=== PATIENT | female | born 1955 | race Caucasian/White ===

== ENCOUNTER → 2023-11-15 11:06 | Outpatient (BNVA) | payer MEDICARE, MEDICAID, SELFPAY | PROVIDERS: PCP Internal Medicine; Visit Provider Surgery ==

== ENCOUNTER 2023-12-10 08:59 | Outpatient (AMB) | payer MEDICARE, MEDICAID, SELFPAY ==
--- NOTE | 2023-12-10 12:04 | A.OFFVIS_ITS ---
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 BMI 36.0 Allergies trimethoprim [From Bactrim] Allergy (Intermediate, Verified 12/10/23 12:04) mouth swelling Medication List - Last Reconciled 12/10/23 by Terry Merino MD albuterol sulfate 90 mcg/actuation 2 puffs inhalation Q4-6H PRN albuterol sulfate 90 mcg/actuation 2 puffs inhalation Q6H PRN dicyclomine 20 mg PO TID empagliflozin (Jardiance) 25 mg PO DAILY fexofenadine 180 mg PO DAILY hydroxyzine HCl 25 mg PO DAILY insulin glargine (Basaglar KwikPen U-100 Insulin) 62 units subcut DAILY lisinopril 40 mg PO DAILY metformin ER 500 mg PO BID montelukast 10 mg PO DAILY semaglutide (Ozempic) 1 mg subcut QWEEK sertraline 150 mg PO DAILY simvastatin 20 mg PO BEDTIME HPI 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 BMI 36.0: Details: Start time: 12pm, End time: 12.40pm ?I spent 35 minutes speaking with the patient on the phone plus an additional 5 minutes reviewing and updating records for a total of 40 minutes HPI Comments Details: Previous weight loss efforts: self diets Wakes up: 8am, Sleeps: 1am Breakfast: skips Lunch: 12pm (tuna fish, hot dogs, pasta) Dinner: 7pm (salad with chicken or steak, potatoes) Snacks: 3-4pm (pretzels or popcorn), 9pm (ice cream or pretzels) Exercise: has stationary bike Fluids: Coffee x1 (cream), tea: none, soda: diet coke x1/day, juice: none, ETOH: once a month [facility] Medical History (Updated 12/10/23 @ 12:34 by Terry Merino MD) BMI 36.0-36.9,adult Obesity IBS (irritable bowel syndrome) Anxiety Depression DJD (degenerative joint disease) Cholelithiasis Asthma Sleep apnea Hyperlipidemia Hypertension Insulin dependent type 2 diabetes mellitus Morbid obesity Surgical History (Updated 11/15/23 @ 13:52 by Linda Mcgovern CMA) Hx of colonoscopy History of local excision of skin lesion Hx of section Family History (Updated 11/15/23 @ 13:52 by Linda Mcgovern CMA) Family/Other No problems noted. Social History (Updated 11/15/23 @ 13:53 by Linda Mcgovern CMA) Alcohol intake: current Alcohol intake frequency: holidays/special occasions only Alcohol type: hard liquor and other Patient Tobacco Use Status: Former Tobacco user Telehealth Telehealth Telehealth Platform: Telephone Location of provider rendering services: practice address Location of patient: address on file Patient Identification confirmed using: Name, : Yes Telehealth method: voice only Patient verbally consented to treatment: Yes Patient verbally consented to billing insurance company: Yes Patient informed of any privacy concerns related to visit: Yes Minutes spent on Phone/Video with Pt.: 40 Assessment & Plan Assessment & Plan (1) Obesity: Code(s): E66.9 - Obesity, unspecified Category: Medical Qualifiers: Obesity type: due to excess calories Obesity classification: adult class 2 (BMI 35 - 39.9) Serious obesity comorbidity presence: with serious comorbidity Body mass index: BMI 36.0-36.9 Qualified Code(s): E66.01 - Morbid (severe) obesity due to excess calories; Z68.36 - Body mass index [BMI] 36.0- 36.9, adult Plan: 1.? Plan for lap sleeve gastrectomy. If diaphragmatic or ventral hernias are present at time of surgery, these will be repaired laparoscopically as well. Risks and complications include possible conversion to an open procedure, anastomotic leak, bleeding requiring transfusion, small bowel obstruction, , DVT and pulmonary embolism, cardiac, or pulmonary complications, as terminal computer operator complications such as anastomotic ulcer, insufficient weight loss and vitamin deficiencies. I emphasized the importance of close follow-up, adherence to instructions and good communication. 2. You will receive a link of our software gia to generate an individualized nutritional and exercise plan specific for you. Please send me a screenshot of the plans you will generate Meal to include lean meat (beef, fish, pork, turkey, chicken), or swedish yogurt, or egg whites, or beans with a salad with olive oil and fruits (berries, pears, apples, kiwi). Avoid salt, breads, potatoes, rice, pasta, desserts. ?3. If you choose shakes, each shake would be drunk slowly, like coffee in a period of 2 hours. ?4. If you choose bars, cut each bar in 4 pieces and eat each piece in 30min ?to make each bar last 2 hours. ?5. I emphasized the importance of measuring accurately the food portion and measure it when serving the food in plate ?6. The meal portions include a specific number of forks of meat and salad. You always eat the meat portion but you can replace up to half of salad/vegetables portion with rice, potatoes or pasta, or a fruit ?if you like. The less you do it the better weight loss will be. ?7. One full-size fork is what it can be scooped on the fork without falling aside and not what can be bit with the fork. Use regular forks like those you find in a typical restaurant. ?8.? Please send me weight measurements as soon as possible and then once a week. Always include your diet and exercise plan. 9. The best choice for exercise would be to use your stationary bike at home that can track calories. ?10.?Goal is to lose at least 1.5-2lbs per week ?11. Goal to lose 10% of your weight before surgery, which is about 19lbs. Ultimate weight goal: 177lbs before surgery 12. Please follow the diet plan exactly without any change. If you don't like something about the plan or you feel hungry you need to communicate with me so I can help you revise the plan. You should not change the plan yourself. 13. To be scheduled for EGD to assess the anatomy of your stomach. The possibility of biopsies was discussed. Patient needs to avoid use of NSAIDs and aspirin for 1 week prior to EGD. Risks of perforation and bleeding was discussed with the patient. This will be an outpatient procedure with IV sedation.
[2023-12-10 12:19] VITALS: BMI 35.9
== END 2023-12-10 12:40 | disposition home or self-care (01) ==
LOC: HO.HBS 08:59
PROVIDERS: PCP Internal Medicine; Visit Provider Surgery
DX: E66.01 Morbid (severe) obesity due to excess calories (principal); Z68.36 Body mass index [BMI] 36.0-36.9, adult
CPT/HCPCS: 99203

== ENCOUNTER → 2023-12-10 08:59 | Outpatient (BNVA) | payer MEDICARE, MEDICAID, SELFPAY | PROVIDERS: PCP Internal Medicine; Visit Provider Surgery ==

== ENCOUNTER 2023-12-22 10:21 | Outpatient (REF) | payer MEDICARE, MEDICAID, SELFPAY ==
--- NOTE | ~2023-12-22 | XR_ITS ---
EXAMINATION: XR CHEST CLINICAL INFORMATION: Morbid severe obesity due to excess calories, weight loss surgery preoperative x-ray. COMPARISON: None available. TECHNIQUE: 2 views of the chest were obtained. FINDINGS: There is no gross pneumothorax. Heart size within normal limits. Dextroscoliosis of the thoracic spine with advanced multilevel degenerative changes. Moderate anterior wedge compression fractures of several adjacent [id number] thoracic vertebral bodies of indeterminate age and etiology. No gross pleural effusion. No focal consolidation. Mildly prominent diffuse interstitial markings of indeterminate age and etiology. XR/XR chest 2V IMPRESSION: 1. Mildly prominent diffuse interstitial markings of indeterminate age and etiology. 2. Moderate anterior wedge compression fractures of several adjacent [id number] thoracic vertebral bodies of indeterminate age and etiology. Electronically signed by: Rosio Walker MD 01/10/2024 10:41 AM EDT
[2023-12-22 10:56] LABS: MANUAL DIFF FLAG NO
[2023-12-22 12:04] LABS: Basophils Absolute Auto 0.1 X10*3/uL (0.0-0.2); Basophils Percent Auto 1.3 % (0-2); Eosinophils Absolute Auto 0.2 X10*3/uL (0.0-0.4); Eosinophils Percent Auto 2.5 % (0-4); Hematocrit 42.2 % (37.0-47.0); Hemoglobin 14.1 g/dl (12.0-16.0); Imm Gran Abs Auto 0.02 X10*3/uL (0.00-0.03); Imm Gran Pct Auto 0.3 % (0.0-0.4); Lymphocytes Absolute Auto 1.3 X10*3/uL (1.2-4.9); Lymphocytes Percent Auto 19.4 % (20-40); Mean Corpuscular HGB Conc 33.4 g/dl (31.0-35.0); Mean Corpuscular Hemoglobin 28.7 pg (27.0-33.0); Mean Corpuscular Volume 85.8 fL (80.0-98.0); Mean Platelet Volume 10.7 fL (9.4-12.3); Monocytes Absolute Auto 0.6 X10*3/uL (0.1-1.2); Monocytes Percent Auto 9.1 % (2-11); Neutrophils Absolute Auto 4.5 x10*3/uL (2.0-8.3); Neutrophils Percent Auto 67.4 % (45-73); Platelet Count 238 X10*3/uL (160-400); Red Blood Count 4.92 X10*6/uL (4.20-5.50); Red Cell Distribution Width 13.7 % (11.0-16.0); White Blood Count 6.7 X10*3/uL (4.8-10.8)
[2023-12-22 12:12] LABS: Estimated Average Glucose 111 mg/dL; Hemoglobin A1C 140.2957 umol/L; Hemoglobin A1c % 5.5 % (<6.0)
[2023-12-22 12:43] LABS: Alanine Aminotransferase 12 U/L (0-31); Albumin Level 4.1 g/dL (3.5-5.0); Alkaline Phosphatase 92 U/L (39-117); Anion Gap 14 (12-20); Aspartate Amino Transferase 19 U/L (5-31); Bilirubin Total 0.3 mg/dL (0.0-1.0); Blood Urea Nitrogen 28 mg/dL (9-16); C Reactive Protein 0.19 mg/dL (< or = 0.50); Carbon Dioxide 28 mmol/L (22-29); Chloride 104 mmol/L (96-108); Cholesterol 166 mg/dL (<200); Estimated Glomerular Filt Rate 56; Glucose Random 66 mg/dL (60-115); HDL Cholesterol 57 mg/dL (>40); Iron 60 mcg/dL (30-160); LDL Cholesterol Calculated 86 mg/dL (<100); Percent Iron Saturation 23 % (15-50); Potassium 4.4 mmol/L (3.3-5.1); Sodium 142 mmol/L (135-145); Total Iron Binding Capacity 260 mcg/dL (228-428); Total Protein 7.4 g/dL (6.5-8.0); Triglycerides 115 mg/dL (<150); Unsaturated Iron Binding 200 ug/dL
[2023-12-22 13:04] LABS: Folate 10.4 ng/mL (> or = 4.0); Vitamin B12 920 pg/mL (200-900)
[2023-12-22 13:07] LABS: Ferritin 43 ng/mL (10-250); Insulin 29 uU/mL (2-29); TSH reflex Free T4 1.59 uIU/mL (0.32-4.0); Vitamin D 25-OH Total 36.4 ng/mL (>30)
[2023-12-25 00:39] LABS: Zinc 92 mcg/dL (60-130)
[2023-12-27 06:34] LABS: Vitamin B1 13 nmol/L (8-30)
[2023-12-27 09:49] LABS: Vitamin A 90 mcg/dL (38-98)
== END 2023-12-22 10:22 | disposition home or self-care (01) ==
LOC: HO.XRAY 10:21
PROVIDERS: PCP Internal Medicine; Visit Provider Surgery
DX: E66.01 Morbid (severe) obesity due to excess calories (principal); E11.9 Type 2 diabetes mellitus without complications; Z79.4 Long term (current) use of insulin; I10 Essential (primary) hypertension; E78.5 Hyperlipidemia, unspecified; G47.30 Sleep apnea, unspecified; J45.909 Unspecified asthma, uncomplicated; K80.20 Calculus of gallbladder without cholecystitis without obstruction
CPT/HCPCS: 36415; 71046; 80053; 80061; 82306; 82607; 82728; 82746; 83036; 83525; 83540; 84425; 84443; 84590; 84630; 85025; 86140

== ENCOUNTER 2023-12-29 10:48 | Outpatient (REF) | payer MEDICARE, MEDICAID, SELFPAY ==
--- NOTE | ~2023-12-29 | US_ITS ---
EXAMINATION: US COMPLETE ABDOMEN WITH LIVER ELASTOGRAPHY CLINICAL INFORMATION: Morbid obesity. COMPARISON: None available. TECHNIQUE: Real-time imaging of the abdominal viscera. Noninvasive ultrasound liver fibrosis assessment is performed using Ritesh ElastPQ point quantification shear wave elastography (pSWE) with a C5-2 MHz transducer. Multiple elastography samples are obtained. FINDINGS: PANCREAS: Normal. The visualized pancreatic head and body are normal in appearance. The remainder of the pancreas is obscured from visualization by the overlying bowel gas. ABDOMINAL AORTA: The proximal, middle, and distal aortic segments are normal in caliber. INFERIOR VENA CAVA: Visualized portions are normal. LIVER: The liver is enlarged with rounded contour and mildly nodular border but with normal echogenicity. No focal lesion or intrahepatic biliary duct dilatation. The right lobe measures 18.6 cm in length. The left lobe measures 10.7 cm in length. Portal flow is towards the liver (hepatopetal). Shear wave liver elastography median stiffness is 2.28 m/s (reference: normal median stiffness is 1.3 m/s or less). IQR/median stiffness to assess sampling precision is 0.14 (reference: good quality data set is IQR/median stiffness of 0.15 or less). GALLBLADDER: Multiple gallstones are present with the largest measuring 2.3 cm. There is an area of echogenicity and shadowing at the gallbladder fundus which is nonmobile which may represent a stone or possibly a mass. COMMON BILE DUCT: Normal in caliber measuring 0.7 cm in diameter. RIGHT KIDNEY: No hydronephrosis. No renal calculi or focal parenchymal lesions. The kidney measures 12.0 cm in maximum dimension. LEFT KIDNEY: No hydronephrosis. No renal calculi . The kidney measures 11.1 cm in maximum dimension. A benign lower pole 1.1 cm Bosniak class I renal cyst is noted which requires no additional imaging or follow up. No solid renal masses are seen. SPLEEN: Spleen is enlarged measuring 14.4 cm in maximum dimension. FREE FLUID: None. US/US abdomen comp w elastography IMPRESSION: 1. Enlarged liver with nodular contour suggesting cirrhosis. 2. There is cholelithiasis with a question of a mass at the gallbladder fundus. Liver MRI/MRCP would be useful for further evaluation. 3. Liver elastography: Measurements are consistent with compensated advanced chronic liver disease. REFERENCE: Society of Radiologists in Ultrasound Liver Stiffness Thresholds (2020): LIVER STIFFNESS THRESHOLDS: *Liver Stiffness equal or less than 1.3 m/s: High probability of being normal. *Liver Stiffness less than 1.7 m/s: In the absence of other known clinical signs, rules out compensated advanced chronic liver disease. *Liver Stiffness 1.7-2.1 m/s: Suggestive of compensated advanced chronic liver disease but need further test for confirmation. *Liver Stiffness over 2.1 m/s: Rules in compensated advanced chronic liver disease. *Liver Stiffness over 2.4 m/s: Suggestive of clinically significant portal hypertension. QUALITY OF DATA SET: *IQR/Median value equal or less than 0.15 implies a quality data set. *IQR/Median value over 0.15 implies a poor quality data set. SIGNIFICANT CHANGE FROM PRIOR EXAM: Significant change if liver stiffness measurement is 10% or greater from prior exam. OTHER CONSIDERATIONS: The stage of liver fibrosis may be overestimated in the setting of acute hepatitis, liver inflammation, elevated liver function tests, hepatic vascular congestion, obstructive cholestasis, non-fasting state, and infiltrative diseases such as amyloidosis and lymphoma. In some patients with NAFLD, the liver stiffness thresholds for compensated advanced chronic liver disease may be lower. In causes other than viral hepatitis and NAFLD, liver stiffness thresholds are not well established. Electronically signed by: Dnate Couch MD 01/01/2024 12:57 PM EDT
== END 2023-12-29 10:49 | disposition home or self-care (01) ==
LOC: HO.US 10:48
PROVIDERS: PCP Internal Medicine; Visit Provider Surgery
DX: E66.01 Morbid (severe) obesity due to excess calories (principal); E11.9 Type 2 diabetes mellitus without complications; Z79.4 Long term (current) use of insulin; I10 Essential (primary) hypertension; K80.20 Calculus of gallbladder without cholecystitis without obstruction
CPT/HCPCS: 76700; 76981

== ENCOUNTER 2024-01-03 08:35 | Outpatient (REF) | payer MEDICARE, MEDICAID, SELFPAY ==
--- NOTE | ~2024-01-03 | FL_ITS ---
EXAMINATION: XR FLUOROSCOPY UPPER GI WITH AIR CLINICAL INFORMATION: Preoperative evaluation prior to bariatric surgery . COMPARISON: None TECHNIQUE: Fluoroscopic air contrast upper GI examination was performed utilizing standard techniques with thin and thick barium and effervescent granules. Numerous spot images were obtained. FINDINGS: Images of the oropharynx and hypopharynx demonstrate normal swallow mechanism with normal epiglottic inversion and soft palate elevation. Trace laryngeal penetration is seen with thick barium. A small amount of tracheal aspiration was then observed. No nasopharyngeal reflux present. A small lateral pharyngeal diverticulum is noted.There was no significant cricopharyngeal achalasia. Dual and single contrast images of the esophagus demonstrate a mildly patulous esophagus. Esophageal mucosa appears normal. No evidence of stricture, mass, or ulcerations identified. Esophageal peristalsis is mildly disorganized. A very small type I hiatal hernia is present. Mild gastroesophageal reflux is seen in the distal esophagus. Dual contrast and single contrast images of the stomach demonstrated a normal contour. There are multiple focal areas of contrast pooling in the fundus of the stomach that may represent small superficial aphthous ulcers. No masses are seen. Contrast freely passed into the gastric antrum and duodenal bulb without delay. Single and air-contrast images of the duodenal bulb demonstrate no abnormality. There may be a tiny diverticulum arising from the duodenal bulb. The duodenal sweep has a normal appearance, course, and mucosal fold appearance. The imaged proximal jejunum has a normal fold pattern and caliber. Incidentally noted was a large calcified mobile gallstone. There is calcification of the aorta. FLUOROSCOPY TIME: 4 minutes 57 seconds Number of Spot Images: 7 Number of Cine: 8 DOSE AREA PRODUCT: [id number] uGy-m2 (microgray-meter squared) FL/FL upper GI w air IMPRESSION: 1. Trace laryngeal penetration with thick barium that progressed to a trace amount of subglottic tracheal aspiration. 2. Tiny lateral pharyngeal diverticulum. 3. Mildly patulous esophagus with mildly disorganized esophageal peristalsis which suggests esophageal dysmotility. 4. Very small type I hiatal hernia with mild gastroesophageal reflux observed. 5. Multiple focal areas of contrast pooling in the fundus of the stomach that may represent small superficial aphthous ulcers. Mildly thickened gastric folds suspected. Findings may represent gastritis. Recommend correlation with EGD. 6. Incidental note of calcified mobile gallstone. This procedure was performed by Cristi Waletr PA-C, and supervised by Dr. Stephenson Electronically signed by: Edward Stephenson MD 01/03/2024 04:50 PM EDT
--- NOTE | 2024-01-03 09:19 | ECG_ITS ---
Test Reason : obesity Blood Pressure : / mmHG Vent. Rate : 081 BPM Atrial Rate : 081 BPM P-R Int : 170 ms QRS Dur : 090 ms QT Int : 386 ms P-R-T Axes : 057 -09 042 degrees QTc Int : 448 ms Normal sinus rhythm Low voltage QRS Possible Inferior infarct , age undetermined Abnormal ECG No previous ECGs available Referred By: Terry Merino Electronically Signed By:DAVID CORRAL
== END 2024-01-03 08:36 | disposition home or self-care (01) ==
LOC: HO.XRAY 08:35
PROVIDERS: PCP Internal Medicine; Visit Provider Surgery
DX: E66.01 Morbid (severe) obesity due to excess calories (principal); E11.9 Type 2 diabetes mellitus without complications; Z79.4 Long term (current) use of insulin; I10 Essential (primary) hypertension; E78.5 Hyperlipidemia, unspecified; G47.30 Sleep apnea, unspecified; J45.909 Unspecified asthma, uncomplicated; K80.20 Calculus of gallbladder without cholecystitis without obstruction
CPT/HCPCS: 74246; 93005

== ENCOUNTER → 2024-01-03 08:40 | Outpatient (BNV) | payer MEDICARE, MEDICAID, SELFPAY | PROVIDERS: PCP Internal Medicine; Visit Provider Radiology Diagnostic Radiology | DX: Z01.818 Encounter for other preprocedural examination (principal); E66.01 Morbid (severe) obesity due to excess calories | CPT/HCPCS: 74246 ==

== ENCOUNTER 2024-01-13 09:01 | Day surgery (SDC) | payer MEDICARE, MEDICAID, SELFPAY ==
[2024-01-13 09:26] VITALS: BP 175/91; PULSE 81; RESP 16; TEMP 36.4; O2SAT 98; BMI 34.9
[2024-01-13] MEDS: Lactated Ringers 1,000 ML 80 ML IVCONT (09:45)
[2024-01-13 10:27] LABS: Glucose, Whole Blood 79 mg/dL (60-115)
--- NOTE | 2024-01-13 11:49 | MHC.SHP ---
Pre-Procedural Eval Section A - 24 Hr Update-Section A only Date of Service: 01/13/24 The patient is an INPATIENT: No The patient has been examined within 24 hours of the surgical procedure. The History & Physical has been completed within 30 days and I have reviewed it.: Yes Section B - Complete if H&P > 30 days Chief Complaint: Morbid (severe) obesity due to excess calories Relevant Family History (Specify if Yes): No Relevant Social History: None Present Medications: None Medical History: No relevant PMH History of Previous Operations: No relevant previous surgery Allergies: Allergies Allergy/AdvReac Type Severity Reaction Status Date / Time trimethoprim [From Bactrim] Allergy Intermediate mouth Verified 01/13/24 09:15 swelling Review of Systems Sugical H&P ROS: Negative: Constitution, Cardiovascular, Respiratory, Neurological, Psychiatric, Hem-Onc, Allergic/Immunologic, Gastrointestinal, Genitourinary, Musculoskeletal, Integumentary, Endocrine and Eyes/Ears/Nose/Throat Exam Surgical H&P Exam: Normal: HEENT, Normal: Heart, Normal: Lungs, Normal: Extremities, Normal: Abdomen, Normal: Skin and Normal: Neurological Plan Diagnosis/Plan: Unchanged (EGD to assess the stomach's anatomy. Risks of bleeding and perforation were discussed with the patient and she is in agreement with the plan.) I have reviewed the history and physical and performed a pertinent physical examination on my patient. No changes have occurred unless specified. Time Spent With Patient Time: Total time managing care of this patient today ____ minutes.
--- NOTE | 2024-01-13 11:50 | P.CONAN_ITS ---
Documented by User: Camila Gunderson NP 01/11/24 15:11 HPI - Anesthesia Eval Consult details Narrative: 68yo F for Upper Endoscopy Anesthesia Pre-Procedure Meds Is the patient on any of the following meds?: GLP1/DPP4 and SGLT2 Inhib PMFSH Active Problems Active Problems: All Active Problems Abnormal EKG (Acute) BMI 36.0-36.9,adult (Acute) Obesity (Acute) IBS (irritable bowel syndrome) (Acute) Anxiety (Acute) Depression (Acute) DJD (degenerative joint disease) (Acute) Cholelithiasis (Acute) Asthma (Acute) Sleep apnea (Acute) Hyperlipidemia (Acute) Hypertension (Acute) Insulin dependent type 2 diabetes mellitus (Acute) Morbid obesity (Acute) Past Medical History Medical History (Updated 01/06/24 @ 22:32 by Terry Merino MD) BMI 36.0-36.9,adult Obesity IBS (irritable bowel syndrome) Anxiety Depression DJD (degenerative joint disease) Cholelithiasis Asthma Sleep apnea Hyperlipidemia Hypertension Insulin dependent type 2 diabetes mellitus Morbid obesity Family History Family History (Updated 11/15/23 @ 13:52 by Linda Mcgovern CMA) Family/Other No problems noted. Surgical History Surgical History Hx of colonoscopy History of local excision of skin lesion Hx of section Social History Social History (Updated 11/15/23 @ 13:53 by Linda Mcgovern CMA) Are you a primary special needs caregiver to a significant other at home: No Do you presently have visiting nurse or other home services: No Alcohol intake: current Alcohol intake frequency: holidays/special occasions only Alcohol type: hard liquor and other Patient Tobacco Use Status: Former Tobacco user Tobacco use type: Cigarette Cigarette Packs Per Day: 1 Cigarettes Per Day: 20.0 Years Smoked: 5 Smoked in Last 30 Days: No Use of substances other than those prescribed or required for medical reasons: No Have you been hit, kicked, punched, or otherwise hurt by someone within the past year? If so, by whom?: No Are you DNR?: No Advance Directives: No Advance Directives Information Provided: Yes Recently lost weight without trying: No How much weight loss: 2-13 pounds Eating poorly because of decreased appetite: No Nutrition screen score: 1 Nutrition Risks: No Nutritional Risk Patient : No : No Poor oral hygiene: Yes (Upper and lower full dentures) Meds Allergies Allergy/AdvReac Type Severity Reaction Status Date / Time trimethoprim [From Bactrim] Allergy Intermediate mouth Verified 01/13/24 09:15 swelling Home Medications ?Medication ?Instructions ?Recorded ?Confirmed ?Last Taken ?Type albuterol sulfate 90 mcg/actuation 2 puff inhalation Q4-6H PRN asthma 11/15/23 01/13/24 Unknown History aerosol inhaler dicyclomine 20 mg tablet 20 mg PO TID 11/15/23 01/13/24 Unknown History empagliflozin 25 mg tablet 25 mg PO DAILY 11/15/23 01/13/24 01/09/24 History (Jardiance) fexofenadine 180 mg tablet 180 mg PO DAILY 11/15/23 01/13/24 Unknown History hydroxyzine HCl 25 mg tablet 25 mg PO DAILY 11/15/23 01/13/24 Unknown History insulin glargine 100 unit/mL (3 54 unit subcut DAILY 11/15/23 01/13/24 01/12/24 23:00 History mL) subcutaneous pen (Basaglar 54 units KwikPen U-100 Insulin) lisinopril 40 mg tablet 40 mg PO DAILY 11/15/23 01/13/24 Unknown History montelukast 10 mg tablet 10 mg PO DAILY 11/15/23 01/13/24 Unknown History semaglutide 1 mg/dose (4 mg/3 mL) 1 mg subcut QWEEK 11/15/23 01/13/24 01/04/24 History subcutaneous pen injector (Ozempic) sertraline 100 mg tablet 150 mg PO DAILY 11/15/23 01/13/24 Unknown History simvastatin 20 mg tablet 20 mg PO BEDTIME 11/15/23 01/13/24 Unknown History amlodipine 10 mg tablet 10 mg PO DAILY 01/13/24 01/13/24 01/12/24 History fluticasone furoate 200 1 ea inhalation DAILY 01/13/24 01/13/24 Unknown History mcg-vilanterol 25 mcg/dose inhalation powder (Breo Ellipta) Assessment and Plan Assessment Anesthesia Assessment: Chart Reviewed Documented by User: Ely Laguerre DO 01/13/24 12:04 HPI - Anesthesia Eval Anesthesia Pre-Procedure Meds Is the patient on any of the following meds?: GLP1/DPP4 and SGLT2 Inhib PMFSH Past Medical History Medical History (Updated 01/06/24 @ 22:32 by Terry Merino MD) BMI 36.0-36.9,adult Obesity IBS (irritable bowel syndrome) Anxiety Depression DJD (degenerative joint disease) Cholelithiasis Asthma Sleep apnea Hyperlipidemia Hypertension Insulin dependent type 2 diabetes mellitus Morbid obesity Family History Family History (Updated 11/15/23 @ 13:52 by Linda Mcgovern CMA) Family/Other No problems noted. Family history of problems with anesthesia: No Surgical History Surgical History Hx of colonoscopy History of local excision of skin lesion Hx of section History of Problems with Anesthesia: No Social History Social History (Updated 11/15/23 @ 13:53 by Linda Mcgovern CMA) Are you a primary special needs caregiver to a significant other at home: No Do you presently have visiting nurse or other home services: No Alcohol intake: current Alcohol intake frequency: holidays/special occasions only Alcohol type: hard liquor and other Patient Tobacco Use Status: Former Tobacco user Tobacco use type: Cigarette Cigarette Packs Per Day: 1 Cigarettes Per Day: 20.0 Years Smoked: 5 Smoked in Last 30 Days: No Use of substances other than those prescribed or required for medical reasons: No Have you been hit, kicked, punched, or otherwise hurt by someone within the past year? If so, by whom?: No Are you DNR?: No Advance Directives: No Advance Directives Information Provided: Yes Recently lost weight without trying: No How much weight loss: 2-13 pounds Eating poorly because of decreased appetite: No Nutrition screen score: 1 Nutrition Risks: No Nutritional Risk Patient : No : No Poor oral hygiene: Yes (Upper and lower full dentures) Meds Allergies Allergy/AdvReac Type Severity Reaction Status Date / Time trimethoprim [From Bactrim] Allergy Intermediate mouth Verified 01/13/24 09:15 swelling Home Medications ?Medication ?Instructions ?Recorded ?Confirmed ?Last Taken ?Type albuterol sulfate 90 mcg/actuation 2 puff inhalation Q4-6H PRN asthma 11/15/23 01/13/24 Unknown History aerosol inhaler dicyclomine 20 mg tablet 20 mg PO TID 11/15/23 01/13/24 Unknown History empagliflozin 25 mg tablet 25 mg PO DAILY 11/15/23 01/13/24 01/09/24 History (Jardiance) fexofenadine 180 mg tablet 180 mg PO DAILY 11/15/23 01/13/24 Unknown History hydroxyzine HCl 25 mg tablet 25 mg PO DAILY 11/15/23 01/13/24 Unknown History insulin glargine 100 unit/mL (3 54 unit subcut DAILY 11/15/23 01/13/24 01/12/24 23:00 History mL) subcutaneous pen (Basaglar 54 units KwikPen U-100 Insulin) lisinopril 40 mg tablet 40 mg PO DAILY 11/15/23 01/13/24 Unknown History montelukast 10 mg tablet 10 mg PO DAILY 11/15/23 01/13/24 Unknown History semaglutide 1 mg/dose (4 mg/3 mL) 1 mg subcut QWEEK 11/15/23 01/13/24 01/04/24 History subcutaneous pen injector (Ozempic) sertraline 100 mg tablet 150 mg PO DAILY 11/15/23 01/13/24 Unknown History simvastatin 20 mg tablet 20 mg PO BEDTIME 11/15/23 01/13/24 Unknown History amlodipine 10 mg tablet 10 mg PO DAILY 01/13/24 01/13/24 01/12/24 History fluticasone furoate 200 1 ea inhalation DAILY 01/13/24 01/13/24 Unknown History mcg-vilanterol 25 mcg/dose inhalation powder (Breo Ellipta) Exam Exam Date and Time: 01/13/24 1150 Height,Weight and Vital Signs: Height 5 ft 2 in Weight 86.545 kg Vital Signs Temperature 97.6 F 01/13/24 09:26 Pulse Rate 81 01/13/24 09:26 Respiratory Rate 16 01/13/24 09:26 Blood Pressure 175/91 H 01/13/24 09:26 Pulse Oximetry 98 01/13/24 09:26 Oxygen Delivery Method Room Air 01/13/24 09:26 Temperature 97.6 F 01/13/24 09:26 Pulse Rate 81 01/13/24 09:26 Respiratory Rate 16 01/13/24 09:26 Blood Pressure 175/91 H 01/13/24 09:26 Pulse Oximetry 98 01/13/24 09:26 Oxygen Delivery Method Room Air 01/13/24 09:26 Airway Mallampati Class: II TM Dist: >3cm Neck ROM: Full Denture: Upper and Lower Heart: S1S2 Lungs: CTAB Assessment and Plan Assessment Anesthesia Assessment: Anesthesia Plan Discussed and Chart Reviewed Final Anesthetic Review Family History of Problems with Anesthesia: No History of Problems with Anesthesia: No NPO: Yes ASA Class: III Final Preanesthetic Review: No Changes in Pt Med Stat, Meds/Allgs Chart Reviewed, Consent Obtained/Reviewed and Anes Risks/Benef Reviewed Patient Risk: Intermediate Procedure Risk: Low Anesthetic Plan Anesthetic Plan: MAC: and Agree w/ Assess. and Plan Disposition: Standard PACU
--- NOTE | 2024-01-13 11:52 | PM.OP ---
Brief Operative Note Date of Service: 01/13/24 Pre-op diagnosis: Severe obesity Post-op diagnosis: same Procedure: PROCEDURE DATE: 01/13/2024 PREOPERATIVE DIAGNOSIS: Severe obesity POSTOPERATIVE DIAGNOSIS: ?Same as above. 1) moderate size hiatal hernia PROCEDURE: [id number] with biopsies Surgeon: Srikanth Merino M.D.. Ph.D. Electroplating Technician: None ? Anesthesia: IV sedation Estimated blood loss: ?Minimal FINDINGS AND PROCEDURE: ? OPERATIVE INDICATIONS: ?The patient is a 68 year old female known to me who is interested in bariatric surgery. Based on this information I recommended an upper endoscopy to evaluate the stomach's anatomy. Risks and complications of the surgery were discussed with the patient in advance particularly the possibility of perforation or bleeding that may require surgical intervention. The patient understood the risks and was in agreement with the plan. ? PROCEDURE: After informed consent was obtained by the patient, the patient was ?transferred to the Operating Room and was placed in the supine position.? After successful induction of IV sedation, a mouth block was inserted and the patient was placed in the left lateral decubitus position. An upper endoscopy was performed next, the oropharynx and esophagus appeared within the normal limits. There was a moderate size 4-5cm hiatal hernia. The z-line was smooth. Two biopsies were obtained from the distal esophagus 2-3 cm proximal to the GE junction and two additional biopsies from the GE junction. The stomach was entered and it appeared to be of normal size. There was no gastritis. There was no stricture or ulcer. A biopsy was obtained from the gastric fundus and the antrum. No significant bleeding was noted from any of the biopsy sites. Retroflexion of the scope confirned the presence of the diaphragmatic hernia. The scope was then advanced into the duodenum which appeared to be normal as well. At that point the duodenum ?and the stomach were decompressed and the scope was withdrawn from the patient's mouth. The patient extubated and was transferred in stable condition to the Recovery Room for further care. I was present and performed all steps of the procedure. There were no residents to assist with this case. Francois Merino M.D., Ph.D. Surgeon: Terry Merino MD Anesthesia: MAC Was an Electroplating Technician used for this Procedure?: No Estimated blood loss (mL): 0 IV fluids (mL): 400 Urine output (mL): 0 (No Cantor to record output) Pathology: other (1) antrum x1, 2) fundus x1, 3) GE junction x2, 4) distal esophagus x2) Condition: stable Disposition: PACU
[2024-01-13 12:44] VITALS: BP 127/79; PULSE 59; RESP 16; TEMP 36.1; O2SAT 96
[2024-01-13 13:02] VITALS: BP 127/68; PULSE 95; RESP 18; TEMP 36.1; O2SAT 94
== END 2024-01-13 13:42 | disposition home or self-care (01) ==
PROVIDERS: PCP Internal Medicine; Visit Provider Surgery
PROC: 0DJ08ZZ Inspection of Upper Intestinal Tract, Via Natural or Artificial Opening Endoscopic (ICD-10-PCS; CPT 43235; principal; 2024-01-13 11:40)
DX: E66.01 Morbid (severe) obesity due to excess calories (principal); Z68.36 Body mass index [BMI] 36.0-36.9, adult; K44.9 Diaphragmatic hernia without obstruction or gangrene; I10 Essential (primary) hypertension; K58.9 Irritable bowel syndrome, unspecified; E78.5 Hyperlipidemia, unspecified; G47.30 Sleep apnea, unspecified; J45.909 Unspecified asthma, uncomplicated; E11.9 Type 2 diabetes mellitus without complications; Z79.4 Long term (current) use of insulin; Z79.84 Long term (current) use of oral hypoglycemic drugs; Z79.85 Long-term (current) use of injectable non-insulin antidiabetic drugs; Z79.899 Other long term (current) drug therapy; Z88.8 Allergy status to other drugs, medicaments and biological substances; Z87.891 Personal history of nicotine dependence
CPT/HCPCS: 43239; 82947; 88305; 88313; 88342; J1100; J1596; J2250; J2704

== ENCOUNTER → 2024-01-13 09:01 | Outpatient (BNV) | payer MEDICARE, MEDICAID, SELFPAY | PROVIDERS: PCP Internal Medicine; Visit Provider Surgery | DX: K44.9 Diaphragmatic hernia without obstruction or gangrene (principal) | CPT/HCPCS: 43239 ==

== ENCOUNTER → 2024-01-24 11:08 | Outpatient (BNVA) | payer MEDICARE, MEDICAID, SELFPAY | PROVIDERS: PCP Internal Medicine; Visit Provider Counselor Mental Health ==

== ENCOUNTER → 2024-01-24 11:08 | Outpatient (AMB) | payer MEDICARE, MEDICAID, SELFPAY ==
--- NOTE | 2024-01-24 11:08 | MHC.WMTHER ---
Intake Intake Visit Reasons: VIDEO Intake Allergies trimethoprim [From Bactrim] Allergy (Intermediate, Verified 01/13/24 09:15) mouth swelling PFSH Medical History (Updated 01/21/24 @ 22:24 by Terry Merino MD) BMI 36.0-36.9,adult Obesity IBS (irritable bowel syndrome) Anxiety Depression DJD (degenerative joint disease) Cholelithiasis Asthma Sleep apnea Hyperlipidemia Hypertension Insulin dependent type 2 diabetes mellitus Morbid obesity Surgical History Hx of colonoscopy History of local excision of skin lesion Hx of section Family History (Updated 11/15/23 @ 13:52 by Linda Mcgovern CMA) Family/Other No problems noted. Social History (Updated 11/15/23 @ 13:53 by Linda Mcgovern CMA) Are you a primary veterinarian laboratory animal care to a significant other at home: No Do you presently have visiting nurse or other home services: No Alcohol intake: current Alcohol intake frequency: holidays/special occasions only Alcohol type: hard liquor and other Patient Tobacco Use Status: Former Tobacco user Tobacco use type: Cigarette Cigarette Packs Per Day: 1 Cigarettes Per Day: 20.0 Years Smoked: 5 Behavioral Health Assessment Weight Management Therapy Therapy Notes Details PT is a 68 years old Female, who presents for a visit to complete assessment as part of surgical weight loss program. PT denied any history of mental health treatment and or past hospitalization/crisis for behavioral health. However, PT reports she used to have some anxiety in the past and her PCP prescribes Sertraline 150mg for anxiety, but she has never been in counseling to treat anxiety, and currently she feels very well. PT denies any history or recent safety concerns around SI/SA and/or self-harm/other-harm, also there is no history of substance use reported. There is also no evidence for stress/emotional-eating, and scores from BES suggest low risk for binge eating behavior. PHQ- scores also showed no active symptoms/concerns with depression. On the other hand, mental status exam is within normal limits, suggesting person's functioning is not impaired. At this time patient is cleared from the behavioral health standpoint. Presenting Concerns Referral Source WMP-Provider. PT sees Dr. Cisneros Reason for referral Completion of behavioral health assessment as part of process for weight-loss surgery. Precipitating Event Obesity. Living Situation Current Living Situation Relative's/Guardian's Wilberto At risk of losing current housing? No Satisfied with current living situation? Yes Comments PT lives with her daughter 2 years ago. Food/Weight/Diet Expectations of change Initial Goal to lose 10% of your weight before surgery, which is about 19lbs. Ultimate weight goal: 177lbs before surgery Patient goals are to lose 50-60Lbs, and become healthier and medical issues under control. PT is implementing the following: Current meal plan: 2 shakes, 2 meals. She takes a bar in place of a shake if needs. Exercise plan: 30 min in the stationary bike. History/Relationship with food PT reports in the past food was a source of comfort, also she used to eat chips or snacks when bored. Denies ever use food to lift her mood or to celebrate after a good day. Example of meals before starting the program: Breakfast: Skip. was only having coffee with cream. Lunch: hot dogs, tuna fish with onions and grijalva. Dinner: pork chops/chicken/meat, potatoes, veggies. Her daughter cooks, so her meals are based on what she cooks at home. Snacks: crackers, piece of candy, pretzels, popcorn. Drinks/Liquids: 1 can of soda at jerald, 1 coffee in the morning, and at least 1 full glass of water at day, 2 bottles of Powerade trough the day. History/Relationship with weight Pt reports she has been heavy since she can remember. PT reports she was under 200Lbs on her late teens. In the last 10 years, the patient's Lowest weight was in the 200Lbs and highest 220Lbs History/Relationship with dieting Self-diets, cutting on foods. She has been in Ozempic for about a year to treat her diabetes but she has noticed this has helped her with hunger. Binge Eating Do you frequently eat large amounts of food in short periods of time, not feeling physically hungry? Yes Do you feel out of control when you eat a large amount of food in a short period of time? No Do you eat large amounts of food rapidly and typically alone? No Night Eating Do you wake up at least once during the night to eat? No If you wake up in the night, do you find that it is necessary to eat something in order to fall back asleep? No Do you have little or no appetite in the morning and feel very hungry in the evening, often overeating between dinner and when you go to bed? No Social History Family history and relationship PT is . She had 7 kids, 1 daughter 7 year sago from diabetes, 6 alive. Has 3 sisters and 1 brother. Parents . PT reports having good relationship with children. Parental/Familial second vp hr assessment obligations None reported. Developmental history and status None reported. Current WNL. Social support Children. Community support PCP Denominational/Spirituality Muslim. Cultural/Ethnic information . Thai heritage. Legal Involvement and History Current or historical involvement with the legal system? None reported. Education Highest grade completed 11th grade. Preferred learning style Visual Currently enrolled in educational program? No Interested in further educational program? 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 Employment Employment Status Retired (been retired 2 1/2 years ago. ) Wants help to find employment? No Meaningful activities knitting. Financial Situation Describe current financial situation Comfortable Financial assistance? Food [place] Service Service? No Mental Health and Addiction Treatment Current/Past substance abuse? No Comments Alcohol: only on special occasions, probably 2-3 times at year, a cocktail and sometimes she doesn't finishes. Cigarettes/Tobacco: None. Quit smoking almost 40 years ago. Cannabis/Edibles: None. Current/Past addictive behavior concerns? No Psychiatric history PT reports she used to have some anxiety in the past and her PCP prescribes Sertraline 150mg for anxiety, but she has never been in counseling to treat anxiety, and currently she feels very well. PT denies ever been in crisis or inpatient for mental health. There is no history and/or current concern about SI/Sa and self-harm or other harm. Medical and Physical Health Summary Additional Medical History not covered in history None reported. Sexual History concerns None reported Physical exam in the last year? Yes Pain Screening Current pain? Yes Pain in the last few months? Yes Comments due to arthritis and will need a surgery on her foot. Medications Is the patient compliant with medications? Yes Does the patient have Rg Guardian in place? Not applicable Does the patient use complimentary health approaches? No Trauma/Abuse History History of trauma? No Questionnaires PHQ-9 Over the last 2 weeks, how often have you been bothered by any of the following problems? 1. Little interest or pleasure in doing things: not at all 2. Feeling down, depressed, or hopeless: not at all 3. Trouble falling or staying asleep, or sleeping too much: several days (when takes a nap in the afternoon.) 4. Feeling tired or having little energy: not at all 5. Poor appetite or overeating: not at all 6. Feeling bad about yourself - or that you are a failure or have let yourself or your family down: not at all 7. Trouble concentrating on things, such as reading the newspaper or watching television: several days (when gets disturbed ) 8. Moving or speaking so slowly that other people could have noticed. Or the opposite - being so fidgety or restless that you have been moving around a lot more than usual: not at all 9. Thoughts that you would be better off or of hurting yourself in some way: not at all Total score: 2 Depression Screening Interpretation: Negative Depression Screening Done: Yes [id number] - PHQ-9 Billing: Yes Source: Developed by Drs. Derik Muhammad, Deirdre Ambrocio, Tl Sylvester and colleagues, with an educational maría from [employer]. Binge Eating Scale Group 1 A. I don't feel self-conscious about my wt. or body size when I'm with others. B. I feel concerned about how I look to others, but it normally does not make me fell disappointed with myself C. I do get self-conscious about my appearance and wt. which makes me feel disappointed in myself. D. I feel very self-conscious about my wt. and frequently I feel intense shame and disgust for myself. I try to avoid social contacts because of my self-consciousness. Response Group 1: D Group 2 A. I don't have any difficulty eating slowly in the proper manner. B. Although I seem to gobble down foods, I don't end up feeling stuffed because of eating to much. C. At times, I tend to eat quickly and then, I feel uncomfortably full afterwards. D. I have the habit of bolting down my food, without really chewing it. When this happens I usually feel uncomfortably stuffed because I've eaten to much. Response Group 2: A Group 3 A. I feel capable to control my eating urges when I want to. B. I feel like I have failed to control my eating more than the average person. C. I feel utterly helpless when it comes to feeling in control of my eating urges. D. Because I feel so helpless about controlling my eating I have become very desperate about trying to get control. Response Group 3: B Group 4 A. I don't have the habit of eating when I'm bored. B. I sometimes eat when I'm bored, but often I'm able to get busy and get my mind off food. C. I have a regular habit of eating when I'm bored, but occasionally, I can use some other activity to get my mind off eating. D. I have a strong habit of eating when I'm bored. Nothing seems to help me breath the habit. Response Group 4: B Group 5 A. I'm usually physically hungry when I eat something. B. Occasionally, I eat something on impulse even though I really am not hungry. C. I have the regular habit of eating foods, that I might not really enjoy, to satisfy a hungry feeling even though physically, I don't need the food. D. Although I'm not physically hungry, I get a hungry feeling in my mouth that only seems to be satisfied when I eat a food, like sandwich, that fills my mouth. Sometimes, when I eat the food to satisfy my mouth hunger, I then spit the food out so I won't gain weight. Response Group 5: B Group 6 A. I don't feel any guilt or self-hate after I overeat. B. After I overeat, occasionally I feel guilt or self-hate. C. Almost all the time I experience strong guilt or self-hate after I overeat. Response Group 6: C Group 7 A. I don't lose total control of my eating when dieting even after periods when I overeat. B. Sometimes when I eat a forbidden food on a diet, I feel like I blew it and eat even more. C. Frequently, I have the habit of saying to myself, I've blown it now, why not go all the way, when I overeat on a diet. When that happens I eat more. D. I have a regular habit of starting a strict diets for myself but I break the diets by going on an eating binge. My life seems to be either a feast or famine. Response Group 7: B Group 8 A. I rarely eat so much food that I feel uncomfortably stuffed afterwards. B. Usually about once a month, I each such a quantity of food, I end up feeling very stuffed. C. I have regular periods during the month when I eat large amounts of food, either at mealtime or at snacks. D. I eat so much food that I regularly feel quite uncomfortable after eating and sometimes a bit nauseous. Response Group 8: B Group 9 A. My level of calorie intake does not go up very high or go down very low on a regular basis. B. Sometimes after I overeat, I will try to reduce my caloric intake to almost nothing to compensate for the excess calories I've eaten. C. I have a regular habit of overeating during the night. It seems that my routine is not to be hungry in the morning but overeat in the evening. D. In my adult years, I have had week-long periods where I practically starve myself. This follows periods when I overeat. It seems I live a life of either feast or famine. Response Group 9: A Group 10 A. I usually am able to stop eating when I want to. I know when enough is enough. B. Every so often, I experience a compulsion to eat which I can't seem to control. C. Frequently, I experience strong urges to eat which I seem unable to control, but at other times I can control my eating urges. D. I feel incapable of controlling urges to eat. I have a fear of not being able to stop eating voluntarily. Response Group 10: A Group 11 A. I don't have any problem stopping eating when I feel full. B. I usually can stop eating when I feel full but occasionally overeat leaving me feeling uncomfortably stuffed. C. I have a problem stopping eating once I start and usually I feel uncomfortably stuffed after I eat a meal. D. Because I have a problem not being able to stop eating when I want, I sometimes have to induce vomiting to relieve my stuffed feeling. Response Group 11: A Group 12 A. I seem to eat just as much when I'm with others, Family social gatherings as when I'm by myself. B. Sometimes, when I'm with other persons, I don't eat as much as I want to eat because I'm self-conscious about my eating. C. Frequently, I eat only a small amount of food when others are present, because I'm very embarrassed about my eating. D. I feel so ashamed about overeating that I pick times to overeat when I know no one will see me. I feel like a closet eater. Response Group 12: D Group 13 A. I eat three meals a day with only an occasional between meal snack. B. I eat 3 meals a day, but I also normally snack between meals. C. When I am snacking heavily, I get in the habit of skipping regular meals. D. There are regular periods when I seem to be continually eating, with no planned meals. Response Group 13: C Group 14 A. I don't think much about trying to control unwanted eating urges. B. At least some of the time, I feel my thoughts are pre-occupied with trying to control my eating urges. C. I feel that frequently I spend much time thinking about how much I ate or about trying not to eat anymore. D. It seems to me that most of my waking hours are pre-occupied by thoughts about eating or not eating. I feel like I'm constantly struggling not to eat. Response Group 14: C Group 15 A. I don't think about food a great deal. B. I have strong craving for food but they last only for brief periods of time. C. I have days when I can't seem to think about anything else but food. D. Most of my days seem to be pre-occupied with thoughts about food. I feel like I live to eat. Response Group 15: A Group 16 A. I usually know whether or not I'm physically hungry. I take the right portion of food to satisfy me. B. Occasionally, I feel uncertain about knowing whether or not I'm physically hungry. A these times it's hard to know how much food I should take to satisfy me. C. Even though I might know how many calories I should eat, I don't have any idea what is a normal amount of food for me. Response Group 16: A Binge Eating Score: 17 Score less than 17 Minimal Risk Score between 18-26 Moderate Risk Score between 27-46 High Risk Assessment & Plan Assessment & Plan (1) Morbid obesity: Code(s): E66.01 - Morbid (severe) obesity due to excess calories (2) Anxiety disorder, unspecified: Code(s): F41.9 - Anxiety disorder, unspecified Plan After completing the assessment the client is cleared from standpoint. This provider has advised client to utilize available resources such as peer support group, Facebook group and group therapy, also the patient has been informed of support available at anytime while she is part of this program. Next gia: None. Telehealth Telehealth Telehealth Platform: [facility] Location of provider rendering services: other Location of patient: address on file Patient Identification confirmed using: Name, : Yes Telehealth method: voice only Patient verbally consented to treatment: Yes Patient verbally consented to billing insurance company: Yes Patient informed of any privacy concerns related to visit: Yes Minutes spent on Phone/Video with Pt.: 60 Coding Level of Care Code New Pt Tele Psy Diag Heenaal ([id number]) Patient Type New Diagnoses Morbid obesity E66.01 Anxiety disorder, unspecified F41.9 Time Spent (min) 60 Comment Start time: 11:05am - End time: 12:05pm.
== END ==
LOC: HO.HBST 11:08
PROVIDERS: PCP Internal Medicine; Visit Provider Counselor Mental Health
DX: F41.9 Anxiety disorder, unspecified (principal); E66.01 Morbid (severe) obesity due to excess calories
CPT/HCPCS: 90791

== ENCOUNTER → 2024-01-28 09:42 | Outpatient (REF) | payer MEDICARE, MEDICAID, SELFPAY ==
--- NOTE | 2024-01-28 09:47 | CA_ITS ---
Transthoracic Echocardiogram Patient (Last, First, Middle): Claire Monaco E Gender: Female Date of : 1955 Age: 68 Procedure Date: 01/28/2024 Procedure Type: Transthoracic Echocardiogram Location: OP Height: 157. cm Weight: 87.09 kg BSA: 1.87 m2 Heart Rate: 75 bpm BP: 140 / 75 mmHg Rpg Programmer: CAL Cowan MD: Terry Merino MD Business Ethics Professor: Toni Vazquez MD Symptoms: R94.31 - Abnormal electrocardiogram [ECG] [EKG] Study Quality: Fair ECG Rhythm: Sinus Conclusions: - 1. Normal LV ejection fraction of 60 65% with mild LVH with impaired relaxation filling pattern 2. Mild aortic stenosis 3. Mildly dilated ascending aorta at 3.8 cm 4. Normal RV systolic pressure 5. No pericardial effusion Findings Left Ventricle Normal left ventricular size and systolic function. There is mildly increased left ventricular wall thickness. The visually estimated ejection fraction is between 60-65%. Spectral Doppler is indicative of an impaired relaxation filling pattern. E/E prime ratio is between 8 and 15 consistent with indeterminate filling pressures. Peak GLS is -16.5%, mildly reduced. Right Ventricle Normal right ventricular cavity size and systolic function. Atria The left atrium is likely dilated. There is no evidence of interatrial shunt. The right atrium is normal in size. Aortic Valve There is mild calcification of the aortic valve. There is mild aortic valve stenosis. The peak aortic gradient is 17 mmHg.The mean gradient is 9 mmHg. The aortic valve area is 1.52 cm2. There is no aortic valve regurgitation. Mitral Valve There is mild anterior and posterior mitral leaflet thickening. There is mild mitral annular calcification. There is trace mitral valve regurgitation. There is no mitral valve stenosis. Pulmonic Valve The pulmonic valve is likely normal. Tricuspid Valve Normal tricuspid valve structure. There is trace tricuspid valve regurgitation. The right ventricular systolic pressure is not calculated. The right ventricular systolic pressure is 21 mmHg. Normal right atrial pressure. There is no evidence of pulmonary hypertension. Great Vessels The pulmonary artery was not well visualized. There is mild dilatation of the ascending aorta measuring 3.80 cm. Small plaque is seen in the sinuses of Valsalva. Venous The inferior vena cava is normal in size and collapses greater than 50% with inspiration. Pericardium/Pleural There is no evidence of pericardial effusion. Prior Study Comparison No prior study available for comparison. Measurements 2D Linear Measurements IVSd: 1.31 0.6-0.9/0.6-1.0 cm LVIDd: 4.19 3.9-5.3/4.2-5.9 cm LVIDd Index: 2.24 2.4-3.2/2.2-3.1 cm/m2 LVIDs: 2.64 2.0-3.6 cm LVPWd: 1.13 0.7-1.1 cm LA Diam: 3.10 2.7-3.8/3.0-4.0 cm LAIDs Index: 1.66 1.5-2.3 cm/m2 LV Mass: 226.59 67-162/88-224 g LV Mass Index: 121.17 43-95/49-115 g/m2 LVOT Diam: 1.90 3.0+(-)1.3 cm 2D Systolic Function EF 4C: 58.40 >55% EF 2C: 62.90 >55% EF BiP: 60.30 >55% Mitral Valve MV Pk E: 0.71 MV PK A: 1.05 MV Decel Time: 233.00 E/A: 0.70 E'Lateral: 6.85 E'Medial: 5.77 E/E' Med: 12.30 E/E' Lat: 10.40 PHT: 68.00 MVA PHT: 3.24 Decel Rusk: 3.06 Aortic Valve AoV Pk Valerio: 2.07 AoV Mn Valerio: 1.43 AoV VTI: 0.43 AoV Pk Grad: 17.00 Aov Mn Grad: 9.00 NAYELI Cont.VTI: 1.52 LVOT LVOT Pk Valerio: 1.02 LVOT Mn Valerio: 0.76 LVOT VTI: 0.23 LVOT Pk Grad: 4.00 LVOT Mn Grad: 3.00 LVOT Diam: 1.90 LVOT Area: 2.84 Diastolic Function MV Pk E: 0.71 MV Pk A: 1.05 E/A: 0.70 E'Medial: 5.77 E/E' Med: 12.30 E' Laterial: 6.85 E/E' Lat: 10.40 Right Ventricle TAPSE (mm): 20.90 TVS' Valerio: 11.90 Tricuspid Valve TR Pk Valerio: 2.13 TR Pk Grad: 18.00 RA Press: 3.00 RVSP: 21.00 Great Vessels Aorta Sinus of Valsalva: 3.20 2.0-3.5 cm Ao Asc: 3.80 2.1-3.4 cm Pulmonary Valve PV Pk Valerio: 0.98 Peak PV Grad: 4.00 Updated in Other Vendor System with Status of Final Toni Vazquez MD electronically signed on 01/30/2024 12:34:59 PM with status of Final
== END ==
LOC: HO.CARD 09:42
PROVIDERS: PCP Internal Medicine; Visit Provider Surgery
DX: R94.31 Abnormal electrocardiogram [ECG] [EKG] (principal)
CPT/HCPCS: 93306; 93356

== ENCOUNTER → 2024-01-28 09:47 | Outpatient (BNV) | payer MEDICARE, MEDICAID, SELFPAY | PROVIDERS: PCP Internal Medicine; Visit Provider Internal Medicine Cardiovascular Disease | DX: I35.0 Nonrheumatic aortic (valve) stenosis (principal); R93.1 Abnormal findings on diagnostic imaging of heart and coronary circulation | CPT/HCPCS: 93306; 93356 ==

== ENCOUNTER 2024-02-25 09:57 | Outpatient (REF) | payer MEDICARE, MEDICAID, SELFPAY ==
[2024-02-27 15:25] LABS: H Pylori Breath Test Negative (Negative)
== END 2024-02-25 09:58 | disposition home or self-care (01) ==
LOC: HO.LNP 09:57
PROVIDERS: Surgery; PCP Internal Medicine; Visit Provider Physician Assistant Surgical
DX: E66.01 Morbid (severe) obesity due to excess calories (principal); E11.9 Type 2 diabetes mellitus without complications; Z79.4 Long term (current) use of insulin; I10 Essential (primary) hypertension; E78.5 Hyperlipidemia, unspecified; G47.30 Sleep apnea, unspecified; J45.909 Unspecified asthma, uncomplicated; K80.20 Calculus of gallbladder without cholecystitis without obstruction
CPT/HCPCS: 83013; 99211

== ENCOUNTER → 2024-03-10 08:31 | Outpatient (REF) | payer MEDICARE, MEDICAID, SELFPAY ==
--- NOTE | ~2024-03-10 | NM_ITS ---
Lexiscan Myocardial perfusion study Indication: Abnormal EKG to evaluate for myocardial ischemia Technique: The patient was brought in for a Lexiscan perfusion study on 03/10/2024 and was injected 0.4 mg of Lexiscan intravenously. Within a minute of this injection 30 mCi of sestamibi was given intravenously. Images were obtained using the SPECT gamma camera interlaced with the gating device. Images were obtained in supine position. Resting perfusion study was performed on 03/15/2024. Patient was administered 30 mCi of sestamibi intravenously at rest. Images were then obtained in supine position. Images obtained without without CT attenuation. Total DLP 132 mGy-cm. Images were processed with the software and compared side to side in short axis, horizontal long axis and vertical long axis views. Findings: The stress perfusion study showed nontender images show moderately reduced uptake in the apex as well as the distal lateral, mildly reduced uptake in the basal lateral is mildly reduced uptake in the inferior wall of the LV myocardium. Attenuated corrected images show moderately reduced uptake in the apex of the LV myocardium.. The gated study shows normal LV systolic function with calculated LVEF of 49%. LV cavity is normal in size. The gated study shows normal systolic wall thickening and contraction of segments. Resting study shows no change in perfusion pattern compared to stress perfusion study. Gating at rest reveals normal systolic wall motion with ejection fraction at 50%. The findings are consistent with fixed apical defect especially attenuated corrected images without any reversible defect suggestive ischemia. Fixed apical defec with normal gated wall motion is suggestive attenuation artifact NM/NM cardiolite stress test Impression: 1. Myocardial perfusion imaging study shows likely normal myocardial perfusion 2. Gated LVEF is 50% 3. Transient ischemic dilatation not present Nondiagnostic changes on EKG. Electronically signed by: Toni Vazquez MD 03/15/2024 12:27 PM [facility] [place]
--- NOTE | 2024-03-10 08:33 | CA_ITS ---
Acquisition Time: 2024-03-10 09:03:16 Total Exercise Time: 00:02:00 Test Indications: Abnormal ECG Medications: SEE H Protocol: LEXISCAN Max HR: 089 BPM 58% of Pred: 153 BPM Max BP: 142/068 mmHG Max Work Load: 1.0 METS Pharmacological stress test with Lexiscan injection, while sitting and kicking her legs, without anginal symptoms, without arrythmia, with normotensive resposne to injection, with nondiagnostic EKG for ischemia. In recovery she reported nausea and was treated with Aminophylline 75mg IVP to reverse Lexiscan. Nuclear images pending. Test reviewed with Dr Vazquez. Referred By: Terry Merino Overread By: MELVIN YEPEZ
== END ==
LOC: HO.CARD 08:31
PROVIDERS: Absent Provider Physician Assistant Surgical; PCP Internal Medicine; Visit Provider Surgery
DX: R94.31 Abnormal electrocardiogram [ECG] [EKG] (principal)
CPT/HCPCS: 78452; 93017; A9500; J0280; J2785

== ENCOUNTER → 2024-03-10 08:33 | Outpatient (BNV) | payer MEDICARE, MEDICAID, SELFPAY | PROVIDERS: Absent Provider Physician Assistant Surgical; PCP Internal Medicine; Visit Provider Nurse Practitioner Family | DX: R94.31 Abnormal electrocardiogram [ECG] [EKG] (principal) | CPT/HCPCS: 78452; 93016; 93018 ==